=== PATIENT | female | born 1990 | race Caucasian/White ===

== ENCOUNTER → 2016-12-17 | Outpatient (CLI) | payer OTHER ==
--- NOTE | 2016-12-20 09:35 | US ---
Examination: Greater than 14 weeks transabdominal ultrasound with color Doppler and M-mode evaluatio n. HISTORY: Screening FINDINGS: LMP is 07/31/2016 TWIN A: EVALUATION: Posterior placenta with a breech lie and grade 1. Visually amniotic fluid is within normal limits. Three-vessel cord is seen. Ventricles are within normal limits. Nuchal fold thickness is not provided. Four chamber heart is noted. Heart rate is 150 beats per minute. BIOMETRY AND GESTATIONAL AGE: Biparietal diameter 4.8 cm. The abdominal circumference measures 15.7 cm. The femoral length is 3.5 cm with head circumference of 18.4 cm. Gestational age is 20 weeks and 6 days. The expected date of delivery is approximately 04/30/2017. Fetus weight is 382 grams. Overall the fetus is within the 93rd percentile. Other detail anatomy summarized into PACs sheet after the images. No anatomical anomalies. TWIN B: EVALUATION: Posterior placenta with a breech lie and grade 1. Visually amniotic fluid is within normal limits. Three-vessel cord is seen. Ventricles are within normal limits. Nuchal fold thickness is not provided. Four chamber heart is noted. Heart rate is 147 beats per minute. BIOMETRY AND GESTATIONAL AGE: Biparietal diameter 4.6 cm. The abdominal circumference measures 15.4 cm. The femoral length is 3.6 cm with head circumference of 17.6 cm. Gestational age is 20 weeks and 4 days. The expected date of delivery is approximately 05/02/2017. Fetus weight is 381 grams. Overall the fetus is within the 92nd percentile. Other detail anatomy summarized into PACs sheet after the images. No anatomical anomalies. However the overall exam appears technically difficult fine detail. The ent irety of the anatomy survey does not appear complete. There appears to be a thin membrane the 2 fetuses. IMPRESSION: 1. Twin live intrauterine . 2. Amniotic fluid levels appear normal. 3. No anomalies identified within the provided imaging.
== END ==
LOC: MW.US 12:50
PROVIDERS: ATTEND Obstetrics & Gynecology
DX: Z36 Encounter for antenatal screening of mother (principal); O30.009 Twin pregnancy, unspecified number of placenta and unspecified number of amniotic sacs, unspecified trimester
CPT/HCPCS: 76805; 76805-26; 76810; 76810-26